=== PATIENT | female | born 1995 | race Hispanic/Latino ===

== ENCOUNTER 2017-09-02 15:33 | Emergency (ER) | payer BC ==
[2017-09-02 16:48] VITALS: TEMP 97.9
[2017-09-02] MEDS ORDERED: Sodium Chloride 0.9% 1,000 ML IV STA (18:41)
[2017-09-02 18:57] LABS: BASO # 0.1 K/uL (0.0-0.2); BASO % 0.4 % (0.0-2.0); EOS # 0.1 K/uL (0.0-0.7); LYMPH # 3.1 K/uL (1.0-4.3); LYMPH % 20.6 % (20.0-40.0); MEAN CELL VOLUME 88.7 fl (81.0-99.0); MEAN CORPUSCULAR HEMOGLOBIN 29.2 pg (27.0-31.0); MONO # 0.9 K/uL (0.0-0.8); MONO % 5.7 % (0.0-10.0); NEUT % 72.3 % (50.0-75.0); RBC 4.44 Mil/uL (3.80-5.20); RED CELL DISTRIBUTION WIDTH 13.1 % (11.5-14.5); WHITE BLOOD COUNT 15.2 K/uL (4.8-10.8)
[2017-09-02 19:06] LABS: ALB/GLOB RATIO 1.3 (1.0-2.1); ALBUMIN 4.3 g/dL (3.5-5.0); ALT/SGPT 32 U/L (9-52); AST/SGOT 26 U/L (14-36); BLOOD UREA NITROGEN 14 mg/dl (7-17); CALCIUM 9.7 mg/dL (8.4-10.2); GFR AFRICAN-AMERICAN > 60; GFR NON-AFRICAN AMERICAN > 60
--- NOTE | 2017-09-02 19:16 | ED PDOC ---
HPI: Abdomen Time Seen by Provider: 09/02/17 18:13 Chief Complaint (Nursing): Abdominal Pain History Per: Patient Additional Complaint(s): Pt. states since this morning she's had progressively worsening RLQ abd pain. Pain is not associated with any alleviating or exacerbating factors. Pain is constant. Denies N/V/D, fever, previous abd surgeries, dysuria, hematuria. Last Menstral Period: 08/16/2017 Past Medical History Reviewed: Historical Data, Nursing Documentation, Vital Signs Vital Signs: Last Vital Signs Temp 97.9 F 09/02/17 16:45 Pulse 67 09/02/17 16:45 Resp 20 09/02/17 16:45 BP 117/68 09/02/17 16:45 Pulse Ox 98 09/02/17 20:33 - Family History Family History: States: No Known Family Hx - Allergies Allergies/Adverse Reactions: Allergies Allergy/AdvReac Type Severity Reaction Status Date / Time No Known Allergies Allergy Verified 09/02/17 16:44 Review of Systems ROS Statement: Except As Marked, All Systems Reviewed And Found Negative Gastrointestinal: Positive for: Abdominal Pain Physical Exam - Physical Exam Appears: Positive for: Well, Non-toxic, No Acute Distress Skin: Positive for: Normal Color, Warm. Negative for: Rash Eye Exam: Positive for: Normal appearance ENT: Positive for: Normal ENT Inspection Neck: Positive for: Normal, Painless ROM Cardiovascular/Chest: Positive for: Regular Rate, Rhythm Respiratory: Positive for: Normal Breath Sounds Gastrointestinal/Abdominal: Positive for: Soft, Tenderness (moderate RLQ tenderness). Negative for: Guarding, Rebound Back: Positive for: Normal Inspection Neurologic/Psych: Positive for: Alert, Oriented - Laboratory Results Result Diagrams: 09/02/17 18:53 09/02/17 18:53 - ECG O2 Sat by Pulse Oximetry: 98 - Progress ED Course And Treament: Labs, CT abd/pelvis w/ IV contrast, IV NS bolus x 1 ordered. Offered pain meds but refused. Pt. kept NPO. Disposition - Clinical Impression Clinical Impression: Abdominal pain, Leukocytosis - Patient ED Disposition Is Patient to be Admitted: Transfer of Care (Signed out to Tara FLOWER pending final disposition.) - Disposition Disposition Time: 20:00 Condition: STABLE Forms: [employer] (Yi)
[2017-09-02] MEDS ORDERED: Iohexol 300 100 ML IJ ONE (19:25)
[2017-09-02] MEDS ORDERED: Sodium Chloride 0.9% 100 ML ONE (19:26)
--- NOTE | 2017-09-02 20:33 | ED PDOC ---
- Laboratory Results Result Diagrams: 09/02/17 18:53 09/02/17 18:53 - ECG O2 Sat by Pulse Oximetry: 98 - Progress ED Course And Treament: case endorsed to narrative writer from Glo FLOWER pending CT EXAM: CT Abdomen and Pelvis With Intravenous Contrast EXAM DATE/TIME: 09/02/2017 6:43 PM CLINICAL HISTORY: 22 years old, female; Pain; Abdominal pain; Other: Rlq pain w/diarrhea; Additional info: Rlq abd pain TECHNIQUE: Axial computed tomography images of the abdomen and pelvis with intravenous contrast. All CT scans at this facility use one or more dose reduction techniques, viz.: automated exposure control; ma/kV adjustment per patient size (including targeted exams where dose is matched to indication; i.e. head); or iterative reconstruction technique. Coronal and sagittal reformatted images were created and reviewed. CONTRAST: 95 mL of Omnipaque administered intravenously. COMPARISON: No relevant prior studies available. FINDINGS: Lung bases: Unremarkable. No mass. No consolidation. ABDOMEN: Liver: Unremarkable. No mass. Gallbladder and bile ducts: Unremarkable. No calcified stones. No ductal dilation. Pancreas: Unremarkable. No mass. No ductal dilation. Spleen: Unremarkable. No splenomegaly. Adrenals: Unremarkable. No mass. Kidneys and ureters: Unremarkable. No solid mass. No hydronephrosis. Stomach and bowel: Unremarkable. No obstruction. No mucosal thickening. Appendix: No findings to suggest acute appendicitis. PELVIS: Bladder: Unremarkable. No mass. Reproductive: Contraceptive ring in the vaginal canal. No conspicuous acute reproductive finding. ABDOMEN and PELVIS: Intraperitoneal space: Unremarkable. No free air. No significant fluid collection. Bones/joints: No acute fracture. No dislocation. Soft tissues: Unremarkable. Vasculature: Unremarkable. No abdominal aortic aneurysm. Lymph nodes: Unremarkable. No enlarged lymph nodes. IMPRESSION: No acute obstructive or inflammatory process in the abdomen or pelvis. EXAM: US Pelvis, Transvaginal CLINICAL HISTORY: 22 years old, female; Pain; Pelvic pain TECHNIQUE: Real-time transvaginal pelvic ultrasound (complete) with image documentation. Transvaginal imaging was used for better evaluation of the endometrium and adnexa. COMPARISON: CT - ABD PELVIS IV CONTRAST ONLY 2017-09-02 19:30 FINDINGS: Uterus/cervix: Unremarkable measuring 6.7 x 3.0 x 4.1 cm. Normal endometrial stripe thickness measuring 7 mm. No myometrial mass. Right ovary: Unremarkable measuring 2.9 x 1.6 x 1.7 cm. No mass. Normal blood flow. Left ovary: Unremarkable measuring 2.1 x 0.9 x 3.0 cm. No mass. Normal blood flow. Free fluid: No free fluid. Bladder: Empty bladder which cannot be evaluated with this probe. IMPRESSION: Unremarkable pelvic ultrasound. No evidence of ovarian torsion. Patient evaluated by Dr. Caballero, surgery resident on-call; states no recommendations from surgical stand point at this time. Patient educated on findings, discharged with rx Naproxen. Advised follow up PMD 2-3 days. Strict return precautions given Disposition - Clinical Impression Clinical Impression: Abdominal pain, Leukocytosis - POA Present On Arrival: None - Disposition Disposition: Routine/Home Disposition Time: 23:32 Condition: IMPROVED Prescriptions: Naproxen [Naprosyn] 500 mg PO Q12 PRN #20 tablet PRN Reason: Pain, Moderate (4-7) Instructions: Acute Abdomen (Belly Pain) Forms: [email or web address] (Ukrainian)
--- NOTE | 2017-09-02 22:26 | US ---
EXAM: US Pelvis, Transvaginal CLINICAL HISTORY: 22 years old, female; Pain; Pelvic pain TECHNIQUE: Real-time transvaginal pelvic ultrasound (complete) with image documentation. Transvaginal imaging was used for better evaluation of the endometrium and adnexa. COMPARISON: CT - ABD PELVIS IV CONTRAST ONLY 2017-09-02 19:30 FINDINGS: Uterus/cervix: Unremarkable measuring 6.7 x 3.0 x 4.1 cm. Normal endometrial stripe thickness measuring 7 mm. No myometrial mass. Right ovary: Unremarkable measuring 2.9 x 1.6 x 1.7 cm. No mass. Normal blood flow. Left ovary: Unremarkable measuring 2.1 x 0.9 x 3.0 cm. No mass. Normal blood flow. Free fluid: No free fluid. Bladder: Empty bladder which cannot be evaluated with this probe. IMPRESSION: Unremarkable pelvic ultrasound. No evidence of ovarian torsion.
--- NOTE | 2017-09-02 23:42 | CP.PCM.CON ---
History of Present Illness - History of Present Illness History of Present Illness: General Surgery Consult for Dr. Dc Reason for consult: lower abdominal pain 22 F with PMH that includes depression/anxiety presents to [facility] for complaint of lower abdominal pain. Patient was seen and evaluated in the ED. Patient states that pain began this morning. She reports sudden onset and states that it has gotten worse. She states that she last ate around lunch time. Patient denies fever/chills or nausea/vomiting. She rates pain as severe when at its worse, currently it is mild. She describes pain as constant and sharp located in lower abdomen worse in RLQ. She states resting helps alleviates pain while activity and certain positions exacerbates it. Denies sick contacts or recent illness. Patient states LMP was about 3 weeks ago. Denies anorexia, palpitations , diarrhea, constipation, incontinence, vaginal discharge or urinary symptoms. PMH: depression/anxiety Meds: zoloft Allergy: NKDA PSH: denies FH: non-contributory Social: current smoker - 0 to 3 cigs per day, social EtOH, occasional marijuana use, 2 sexual partners - recently tested with negative results Review of Systems - Review of Systems All systems: reviewed and no additional remarkable complaints except (as per HPI ) Past Patient History - Past Social History Smoking Status: Current Some Days Smoker - PSYCHIATRIC Hx Substance Use: No - SURGICAL HISTORY Hx Surgeries: No Meds Home Medications: Home Medication List Medication Instructions Recorded Confirmed Type Naproxen [Naprosyn] 500 mg PO Q12 PRN #20 tablet 09/02/17 Rx Allergies/Adverse Reactions: Allergies Allergy/AdvReac Type Severity Reaction Status Date / Time No Known Allergies Allergy Verified 09/02/17 16:44 Physical Exam - Constitutional Appears: No Acute Distress - Head Exam Head Exam: ATRAUMATIC, NORMOCEPHALIC - Eye Exam Eye Exam: EOMI, Normal appearance - ENT Exam ENT Exam: Mucous Membranes Moist - Respiratory Exam Respiratory Exam: NORMAL BREATHING PATTERN - Cardiovascular Exam Cardiovascular Exam: REGULAR RHYTHM - GI/Abdominal Exam GI & Abdominal Exam: Normal Bowel Sounds, Soft, Tenderness (mild RLQ). absent: Distended, Firm, Guarding, Rebound, Rigid Additional comments: (-)obturator,psoas, and rovsing signs - Extremities Exam Extremities exam: Positive for: normal capillary refill, pedal pulses present. Negative for: calf tenderness - Back Exam Back exam: absent: CVA tenderness (L), CVA tenderness (R) - Neurological Exam Neurological exam: Alert, CN II-XII Intact, Oriented x3 - Psychiatric Exam Psychiatric exam: Normal Affect, Normal Mood - Skin Skin Exam: Dry, Intact, Normal Color, Warm Results - Vital Signs Recent Vital Signs: Last Vital Signs Temp 97.9 F 09/02/17 16:45 Pulse 67 09/02/17 16:45 Resp 20 09/02/17 16:45 BP 117/68 09/02/17 16:45 Pulse Ox 98 09/02/17 23:32 - Labs Result Diagrams: 09/02/17 18:53 09/02/17 18:53 Labs: Laboratory Results - last 24 hr 09/02/17 09/02/17 18:53 18:53 WBC 15.2 H RBC 4.44 Hgb 13.0 Hct 39.4 MCV 88.7 MCH 29.2 MCHC 33.0 RDW 13.1 Plt Count 213 MPV 9.0 Neut % (Auto) 72.3 Lymph % (Auto) 20.6 [place] % (Auto) 5.7 Eos % (Auto) 1.0 Baso % (Auto) 0.4 Neut # (Auto) 11.0 H Lymph # (Auto) 3.1 [place] # (Auto) 0.9 H Eos # (Auto) 0.1 Baso # (Auto) 0.1 Sodium 142 Potassium 4.5 Chloride 103 Carbon Dioxide 23 Anion Gap 21 H BUN 14 Creatinine 0.8 Est GFR ( Amer) > 60 Est GFR (Non-Af Amer) > 60 Random Glucose 88 Calcium 9.7 Total Bilirubin 0.5 AST 26 ALT 32 Alkaline Phosphatase 71 Total Protein 7.5 Albumin 4.3 Globulin 3.2 Albumin/Globulin Ratio 1.3 Assessment & Plan - Assessment and Plan (Free Text) Assessment: 22 F with abdominal pain and leukocytosis; Transvaginal US and CT abd/pelvis were unremarkable -Patient afebrile, no nausea/vomiting, rebound tenderness, fever or anorexia -Begum score of 4-[address] scan; CT scan was unremarkable -AIR score is 4 (Low risk); recommends outpatient follow-up -Discuss with Dr. Dao Caballero PGY1
[2017-09-03 00:18] VITALS: BP 115/68; PULSE 64; RESP 18; O2SAT 97
--- NOTE | 2017-09-03 08:47 | CT ---
PROCEDURE: CT Abdomen and Pelvis with contrast HISTORY: RLQ abd pain COMPARISON: None. TECHNIQUE: Contrast dose: 95 cc Omnipaque 300 Radiation dose: Total exam DLP = 490.80 mGy-cm. This CT exam was performed using one or more of the following dose reduction techniques: Automated exposure control, adjustment of the mA and/or kV according to patient size, and/or use of iterative reconstruction technique. FINDINGS: LOWER THORAX: Unremarkable. LIVER: Unremarkable. No gross lesion or ductal dilatation. GALLBLADDER AND BILE DUCTS: Contracted. No calcified gallstones. No mural thickening or pericholecystic fluid. PANCREAS: Unremarkable. No gross lesion or ductal dilatation. SPLEEN: Unremarkable. ADRENALS: Unremarkable. No mass. KIDNEYS AND URETERS: Unremarkable. No hydronephrosis. No solid mass. VASCULATURE: Unremarkable. No aortic aneurysm. BOWEL: Unremarkable. No obstruction. No gross mural thickening. APPENDIX: Appendix identified. The appendix measures up to 8 mm in diameter. This is indeterminate. However, the appendix does not appear to be distended with fluid nor is there evidence of any periappendiceal inflammatory change. Likely normal. No evidence of appendicolith. No periappendiceal fluid, gas or abscess. PERITONEUM: Unremarkable. No free fluid. No free air. LYMPH NODES: Unremarkable. No enlarged lymph nodes. BLADDER: Unremarkable. REPRODUCTIVE: Normal uterus BONES: No acute fracture. OTHER FINDINGS: None. IMPRESSION: No evidence of appendicitis. Unremarkable examination. Preliminary interpretation of this examination was reported by [employer] at 8:12 p.m. on 09/02/2017. There is concurrence of this report with the preliminary interpretation.
== END 2017-09-02 23:59 | disposition home or self-care (01) ==
LOC: H.ER 15:33
DX: R10.9 Unspecified abdominal pain (principal); D72.829 Elevated white blood cell count, unspecified; F32.9 Major depressive disorder, single episode, unspecified
CPT/HCPCS: 74177; 76830; 80053; 81025; 85025; 87040; 96374; 99284; J2270; J7040; Q9967